=== PATIENT | male | born 1965 | race African-American/Black ===

== ENCOUNTER 2016-07-04 12:01 | Emergency (ER) | payer BC ==
[~2016-07-04] VITALS: Ht 180.3 cm; Wt 188.1 kg
[~2016-07-04 12:01] MED LIST: ALLOPURINOL100 MG PO; COLCHICINE; COLCHICINE,COL0.6 MG PO; LANTUS 3 M100 UNITS/ SC; LASIX40 MG PO; LISINOPRIL40 MG PO; METFORMIN HCL500 MG PO; NAPROSYN500 MG PO; NOVOLOG PE100 UNITS/ SC; PRAVACHOL40 MG PO; PRILOSEC40 MG PO; ZESTRIL,PRINIVI40 MG PO; ZOCOR40 MG PO
[2016-07-04 12:26] LABS: POINT-OF-CARE METER ID UU13113778
[2016-07-04 12:56] LABS: HEMATOCRIT 47.6 % (38.0-50.0); MCH 25.8 PG (29.0-34.0); MCHC 32.4 G/DL (30.0-36.0); MCV 79.6 FL (86-99); MEAN PLAT.VOLUME 12.6 uM^3 (9.0-12.4); PLATELET COUNT 168 K/uL (156-360); RBC DIS.WIDTH-CV 14.3 % (11.8-14.6); RBC DIS.WIDTH-SD 41.3 % (39-53); RED BLOOD COUNT 5.98 M/uL (4.00-5.50); WHITE BLOOD COUNT 9.9 K/uL (4.1-10.2)
[2016-07-04 13:08] LABS: CHLORIDE 98 mEq/L (99-109); SODIUM 136 mEq/L (136-147)
[2016-07-04 13:10] LABS: GLUCOSE 272 mg/dL (70-99)
[2016-07-04 13:11] LABS: ANION GAP 10 MEQ/L (2-14)
[2016-07-04 13:14] LABS: GFR ESTIMATE (CALCULATED) > 59 mL/min/
[2016-07-04 13:15] LABS: UREA NITROGEN (BUN) 10 mg/dL (9-23)
[2016-07-04] MEDS ORDERED: TESSALON PERLE100 MG PO (13:48)
[2016-07-04 14:48] VITALS: BP 170/90
== END 2016-07-04 14:48 | disposition home or self-care (01) ==
LOC: EME 12:01
DX: J06.9 Acute upper respiratory infection, unspecified (principal); R51 Headache; E11.9 Type 2 diabetes mellitus without complications; Z79.4 Long term (current) use of insulin; E66.9 Obesity, unspecified
CPT/HCPCS: 70450; 80048; 82948; 85027; 93005; 99281; 99284